=== PATIENT | female | born 1990 | race Caucasian/White ===

== ENCOUNTER 2020-01-06 16:09 | Emergency (ER) | payer BC ==
[~2020-01-06] VITALS: Ht 167.6 cm; Wt 138.3 kg
[2020-01-06] MEDS ORDERED: CARVEDILOL25 MG PO (16:38)
[2020-01-06] MEDS ORDERED: DILTIAZEM ER300 M1 PO (16:38)
[2020-01-06] MEDS ORDERED: OMEPRAZOLE 20 M20 M1 PO (16:39)
[2020-01-06] MEDS ORDERED: VITAMIN D310 MC2 PO (16:39)
[2020-01-06] MEDS ORDERED: IRON18 M1 PO (16:40)
[2020-01-06] MEDS ORDERED: NORCO 5-325 TA1 EAC2 PO (17:34)
[2020-01-06 18:38] VITALS: BP 129/71
== END 2020-01-06 18:38 | disposition home or self-care (01) ==
LOC: ER 16:09
DX: S93.401A Sprain of unspecified ligament of right ankle, initial encounter (principal); S93.601A Unspecified sprain of right foot, initial encounter; Z79.899 Other long term (current) drug therapy; W10.9XXA Fall (on) (from) unspecified stairs and steps, initial encounter; Y93.89 Activity, other specified; Y92.89 Other specified places as the place of occurrence of the external cause; Y99.8 Other external cause status